=== PATIENT | female | born 1955 | race Caucasian/White ===

== ENCOUNTER 2017-02-07 13:05 | Emergency (ER) | payer OTHER ==
[~2017-02-07] VITALS: Ht 160 cm; Wt 108.0 kg
[2017-02-07] MEDS ORDERED: CITA20TA4 (13:23)
[2017-02-07] MEDS ORDERED: MELA0.02 PO (13:23)
[2017-02-07] MEDS ORDERED: HYDR-3713 PO (13:23)
[2017-02-07] MEDS ORDERED: ESOM1CAP5 (13:23)
[2017-02-07] MEDS ORDERED: PROA1AER (13:23)
[2017-02-07] MEDS ORDERED: DOXA1TAB41 (13:23)
[2017-02-07] MEDS ORDERED: INSUH10VL SC (13:23)
[2017-02-07] MEDS ORDERED: DICY20TA11 (13:23)
[2017-02-07] MEDS ORDERED: OCUVTAB PO (13:23)
[2017-02-07] MEDS ORDERED: AMLO5TAB2 (13:23)
[2017-02-07] MEDS ORDERED: MULT1TAB10 PO (13:23)
[2017-02-07] MEDS ORDERED: ASMA16.7 (13:23)
[2017-02-07] MEDS ORDERED: TRAM50TA2 (13:23)
[2017-02-07] MEDS ORDERED: ATOR1TAB21 (13:23)
[2017-02-07] MEDS ORDERED: METF500T PO (13:23)
[2017-02-07] MEDS ORDERED: VALSART/HCTZ (13:23)
--- NOTE | 2017-02-07 14:32 | REP ---
Clinical: Visual changes . Comparison: None . Findings: The ventricles, sulci, and cisterns are normal in position and appearance. Deleon-white differentiation is maintained. No acute intracranial hemorrhage, mass/mass effect, pathology or trauma/injury. No evidence for acute infarction. No extra-axial fluid collection. Calvarium is intact. Paranasal sinuses and mastoid air cells are clear. Impression: Normal noncontrast head CT. No evidence for acute intracranial pathology or trauma/injury. Signed by Jayme King MD 02/07/2017 02:24 P
[2017-02-07 15:31] VITALS: BP 149/54
== END 2017-02-07 15:49 | disposition home or self-care (01) ==
LOC: M ED 13:49
DX: H53.9 Unspecified visual disturbance (principal); E11.9 Type 2 diabetes mellitus without complications; E78.00 Pure hypercholesterolemia, unspecified; E66.9 Obesity, unspecified; Z87.891 Personal history of nicotine dependence; Z79.899 Other long term (current) drug therapy; Z79.84 Long term (current) use of oral hypoglycemic drugs; Z79.4 Long term (current) use of insulin; Z88.8 Allergy status to other drugs, medicaments and biological substances; Z91.013 Allergy to seafood

== ENCOUNTER → 2020-02-07 | Outpatient (REF) | payer MEDICARE, OTHER ==
[~2020-02-07] MED LIST: AMLO5TAB6; ASMA16.7; ATOR1TAB21; CITA20TA6; DICY20TA11; DOXA1TAB41; ESOM1CAP5; HYDR-3713 PO; INSUH10VL SC; MELA3TAB49 PO; METF500T13 PO; MULT1TAB10 PO; OCUVTAB PO; PROAAER10; TRAM50TA2; VALSART/HCTZ
[2020-02-07 14:47] LABS: ALBUMIN 3.3 GM/DL (3.2-5.2); ALT/SGPT 25 U/L (12-78); BILIRUBIN,TOTAL 0.2 MG/DL (0.2-1.0); BLOOD UREA NITROGEN 15 MG/DL (7-18); CALCIUM LEVEL 9.6 MG/DL (8.8-10.2); CARBON DIOXIDE LEVEL 32 MEQ/L (21-32); CHLORIDE LEVEL 105 MEQ/L (98-107); CREATININE FOR GFR 0.65 MG/DL (0.55-1.30); GLOMERULAR FILTRATION RATE > 60.0 (>45); GLUCOSE, FASTING 200 MG/DL (70-100); POTASSIUM SERUM 4.7 MEQ/L (3.5-5.1); SODIUM LEVEL 142 MEQ/L (136-145); TOTAL 25(OH) VITAMIN D 51.4 NG/ML (30.0-100.0); TOTAL PROTEIN 6.8 GM/DL (6.4-8.2)
[2020-02-07 15:23] LABS: HEMOGLOBIN A1c 7.4 %
== END ==
LOC: M LABDRWAD 12:38
DX: E11.649 Type 2 diabetes mellitus with hypoglycemia without coma (principal); Z79.4 Long term (current) use of insulin

== ENCOUNTER → 2020-05-10 | Outpatient (REF) | payer MEDICARE, OTHER ==
[~2020-05-10] MED LIST changes: +AMLO1TAB24; -AMLO5TAB6
[2020-05-10 15:33] LABS: BLOOD UREA NITROGEN 15 MG/DL (7-18); CALCIUM LEVEL 9.7 MG/DL (8.8-10.2); CARBON DIOXIDE LEVEL 32 MEQ/L (21-32); CHLORIDE LEVEL 103 MEQ/L (98-107); CHOLESTEROL LEVEL 176 MG/DL (<200); CREATININE FOR GFR 0.59 MG/DL (0.55-1.30); GLOMERULAR FILTRATION RATE > 60.0 (>45); GLUCOSE, FASTING 97 MG/DL (70-100); HDL CHOLESTEROL 55 MG/DL (>40); LDL CHOLESTEROL 75 MG/DL (<100); NON-HDL-C 121 MG/DL; POTASSIUM SERUM 4.2 MEQ/L (3.5-5.1); SODIUM LEVEL 141 MEQ/L (136-145); TRIGLYCERIDES LEVEL 230 MG/DL (<150)
[2020-05-10 15:38] LABS: HEMOGLOBIN A1c 7.2 %
== END ==
LOC: M LABDRWAD 12:36
PROVIDERS: ATTEND Nurse Practitioner Family
DX: E11.649 Type 2 diabetes mellitus with hypoglycemia without coma (principal); Z79.4 Long term (current) use of insulin; E78.2 Mixed hyperlipidemia

== ENCOUNTER → 2021-02-06 | Outpatient (REF) | payer MEDICARE, OTHER ==
[2021-02-06 13:42] LABS: ALBUMIN 3.4 GM/DL (3.2-5.2); BLOOD UREA NITROGEN 14 MG/DL (7-18); CALCIUM LEVEL 10.4 MG/DL (8.8-10.2); CARBON DIOXIDE LEVEL 32 MEQ/L (21-32); CHLORIDE LEVEL 103 MEQ/L (98-107); CREATININE FOR GFR 0.61 MG/DL (0.55-1.30); GLOMERULAR FILTRATION RATE > 60.0 (>45); GLUCOSE, FASTING 151 MG/DL (70-100); POTASSIUM SERUM 4.2 MEQ/L (3.5-5.1); SODIUM LEVEL 142 MEQ/L (136-145)
[2021-02-06 14:23] LABS: HEMOGLOBIN A1c 7.1 %
== END ==
LOC: M LABDRWAD 12:29
PROVIDERS: ATTEND Nurse Practitioner Family
DX: E83.52 Hypercalcemia (principal); E11.649 Type 2 diabetes mellitus with hypoglycemia without coma; Z79.4 Long term (current) use of insulin

== ENCOUNTER → 2021-06-04 | Outpatient (REF) | payer MEDICARE, OTHER ==
[2021-06-04 13:44] LABS: ALBUMIN 3.2 GM/DL (3.2-5.2); ALT/SGPT 20 U/L (12-78); BILIRUBIN,TOTAL 0.2 MG/DL (0.2-1.0); BLOOD UREA NITROGEN 13 MG/DL (7-18); CARBON DIOXIDE LEVEL 31 MEQ/L (21-32); CHLORIDE LEVEL 103 MEQ/L (98-107); CHOLESTEROL LEVEL 181 MG/DL (<200); CHOLESTEROL RISK RATIO 2.919 (<5); CREATININE FOR GFR 0.62 MG/DL (0.55-1.30); GLOMERULAR FILTRATION RATE > 60.0 (>45); GLUCOSE, FASTING 169 MG/DL (70-100); HDL CHOLESTEROL 62 MG/DL (>40); LDL CHOLESTEROL 86 MG/DL (<100); NON-HDL-C 119 MG/DL; POTASSIUM SERUM 4.2 MEQ/L (3.5-5.1); PTH INTACT 41.4 PG/ML (18.5-88.0); SODIUM LEVEL 141 MEQ/L (136-145); TOTAL 25(OH) VITAMIN D 46.9 NG/ML (30.0-100.0); TOTAL PROTEIN 6.7 GM/DL (6.4-8.2); TRIGLYCERIDES LEVEL 167 MG/DL (<150)
[2021-06-04 13:53] LABS: HEMOGLOBIN A1c 7.4 %
== END ==
LOC: M LABDRWAD 12:43
PROVIDERS: ATTEND Nurse Practitioner Family
DX: E83.52 Hypercalcemia (principal)

== ENCOUNTER → 2021-06-11 | Outpatient (REF) | payer MEDICARE, OTHER | LOC: M LAB REF 15:49 | PROVIDERS: ATTEND Nurse Practitioner Family | DX: E83.52 Hypercalcemia (principal) ==

== ENCOUNTER 2022-03-30 20:05 | Emergency (ER) | payer OTHER, MEDICARE ==
[~2022-03-30] VITALS: Ht 160 cm; Wt 121.0 kg
[~2022-03-30 20:05] MED LIST changes: -CITA20TA6; +CITA20TA6 PO; -DICY20TA11; +DICY20TA20 PO; -DOXA1TAB41; +DOXA1TAB41 PO; -ESOM1CAP5; +ESOM1CAP5 PO; +INSUH10VL INJ; -INSUH10VL SC; -PROAAER10; +PROAAER10 INH
[2022-03-30] MEDS ORDERED: MORPHINE 4 MG/ML 1ML VIAL/SYRINGE IV ONE ×2 (20:25→22:10)
[2022-03-30 20:51] LABS: BASO % 0.2 % (0.0-1.0); EOS # 0.3 10^3/uL (0.0-0.5); EOS % 1.2 % (0.0-3.0); HEMATOCRIT 35.5 % (36.0-47.0); HEMOGLOBIN 11.2 g/dl (12.0-15.5); LYMPH # 1.1 10^3/uL (1.5-5.0); LYMPH % 5.4 % (24.0-44.0); MEAN CORPUSCULAR HEMOGLOBIN 26.7 pg (27.0-33.0); MEAN CORPUSCULAR HGB CONC 31.5 g/dl (32.0-36.5); MEAN CORPUSCULAR VOLUME 84.7 fl (80.0-96.0); MONO % 9.4 % (2.0-8.0); NEUTROPHILS # 16.7 10^3/uL (1.5-8.5); PLATELET COUNT, AUTOMATED 446 10^3/uL (150-450); RED BLOOD COUNT 4.19 10^6/uL (4.00-5.40); WHITE BLOOD COUNT 20.1 10^3/uL (4.0-10.0)
[2022-03-30] MEDS ORDERED: ROSU10TA6 PO (21:02)
[2022-03-30] MEDS ORDERED: FAMO40TA3 PO (21:02)
[2022-03-30 21:03] LABS: INR 0.93; PROTHROMBIN TIME 12.9 SECONDS (12.7-14.5)
[2022-03-30 21:04] LABS: PARTIAL THROMBOPLASTIN TIME 26.5 SECONDS (25.9-37.0)
[2022-03-30 21:07] LABS: MONO # 1.9 10^3/uL (0.0-0.8)
[2022-03-30 21:23] LABS: ALBUMIN 3.4 GM/DL (3.2-5.2); ALT/SGPT 25 U/L (12-78); BILIRUBIN,DIRECT < 0.1 MG/DL (0.0-0.2); BILIRUBIN,TOTAL 0.3 MG/DL (0.2-1.0); BLOOD UREA NITROGEN 19 MG/DL (7-18); CALCIUM LEVEL 9.5 MG/DL (8.8-10.2); CARBON DIOXIDE LEVEL 26 MEQ/L (21-32); CHLORIDE LEVEL 108 MEQ/L (98-107); CREATININE FOR GFR 0.88 MG/DL (0.55-1.30); GLOMERULAR FILTRATION RATE > 60.0 (>45); GLUCOSE, FASTING 161 MG/DL (70-100); POTASSIUM SERUM 3.9 MEQ/L (3.5-5.1); SODIUM LEVEL 141 MEQ/L (136-145)
[2022-03-30] MEDS ORDERED: ISOVUE-370 76% 100ML VIAL As Ordered ONE (21:56)
[2022-03-31] MEDS ORDERED: MELA5CAP2 PO (00:57)
[2022-03-31] MEDS ORDERED: VALS1TAB67 PO (00:57)
[2022-03-31] MEDS ORDERED: HYDR-3490 PO (00:57)
[2022-03-31] MEDS ORDERED: AMLO1TAB25 PO (00:57)
[2022-03-31] MEDS ORDERED: HOME MED LIST COMPLETE! XX SCH (01:00)
[2022-03-31] MEDS ORDERED: MIDAZOLAM INJ 2MG/2ML VIAL (J2250 PER 1MG) As Ordered ONE (01:22)
[2022-03-31] MEDS ORDERED: LIDOCAINE 1% MDV 20ML VIAL SC ONE (01:25)
[2022-03-31 02:00] VITALS: BP 206/84
[2022-03-31] MEDS ORDERED: MIDAZOLAM INJ 2MG/2ML VIAL (J2250 PER 1MG) IV STA (02:09)
[2022-03-31] MEDS ORDERED: MORPHINE 4 MG/ML 1ML VIAL/SYRINGE IV ONE (02:10)
[2022-03-31 03:10] LABS: RSV AMPLIFICATION NEGATIVE (NEGATIVE)
== END 2022-03-31 02:24 | disposition short-term general hospital (02) ==
LOC: M ED 20:05 → EDSEX 20:05 → EDBD 20:05 → M ED 03-31 02:24
DX: S82.101A Unspecified fracture of upper end of right tibia, initial encounter for closed fracture (principal); S22.41XA Multiple fractures of ribs, right side, initial encounter for closed fracture; S82.831A Other fracture of upper and lower end of right fibula, initial encounter for closed fracture; J93.9 Pneumothorax, unspecified; V49.40XA Driver injured in collision with unspecified motor vehicles in traffic accident, initial encounter; M48.061 Spinal stenosis, lumbar region without neurogenic claudication; M51.26 Other intervertebral disc displacement, lumbar region; M25.061 Hemarthrosis, right knee; E11.9 Type 2 diabetes mellitus without complications; I10 Essential (primary) hypertension; E78.5 Hyperlipidemia, unspecified; Z88.8 Allergy status to other drugs, medicaments and biological substances; Z91.013 Allergy to seafood; Z79.899 Other long term (current) drug therapy
CPT/HCPCS: 32551; 70450; 71045; 71260; 72125; 72128; 72131; 73030; 73552; 73590; 74177; 80047; 80048; 80076; 85025; 85610; 85730; 87631; 93041; 94760; 96374; 96375; 96376; 99291; 99292; J2250; J2270; Q9967